=== PATIENT | female | born 1995 | race Two or more races ===

== ENCOUNTER 2022-10-22 07:59 | Emergency (ER) | payer BC ==
[~2022-10-22] VITALS: Ht 157.5 cm; Wt 63.5 kg
[2022-10-22] MEDS ORDERED: IBU600 MG (10:10)
[2022-10-22] MEDS ORDERED: DICLOFENAC POTA50 MG PO (12:54)
[2022-10-22] MEDS ORDERED: ORPHENADRINE C100 MG PO (12:54)
== END 2022-10-22 13:02 ==
LOC: ER 07:59
DX: S09.90XA Unspecified injury of head, initial encounter (principal); W18.30XA Fall on same level, unspecified, initial encounter; Y93.9 Activity, unspecified; Y92.9 Unspecified place or not applicable; S13.9XXA Sprain of joints and ligaments of unspecified parts of neck, initial encounter; S00.33XA Contusion of nose, initial encounter